=== PATIENT | female | born 1960 | race Two or more races ===

== ENCOUNTER → 2016-05-19 | Outpatient (CLI) | payer BC ==
--- NOTE | 2016-05-19 12:53 | RAD ---
EXAM: CT head without contrast. HISTORY: Headache, dizziness, fall. TECHNIQUE: Computed tomography of the head was performed without intravenous contrast. COMPARISON: None. FINDINGS: There is no intracranial hemorrhage. Elizondo-white differentiation is preserved. The ventricles are normal in size and position. The visualized paranasal sinuses appear clear. The orbits are unremarkable. The temporal bones are unremarkable. The calvarium reveals no suspicious lesions. IMPRESSION: 1. No acute intracranial findings. *One or more of the following individualized dose reduction techniques were utilized for this examination: 1. Automated exposure control. 2. Adjustment of the mA and/or kV according to patient size. 3. Use of iterative reconstruction technique.
--- NOTE | 2016-05-19 12:56 | RAD ---
EXAM: Sacrum/coccyx 3 views. HISTORY: Fall with sacrococcygeal pain. COMPARISON: None. FINDINGS: No fractures are identified. The sacroiliac joints and pubic symphysis are normally aligned. IMPRESSION: 1. No displaced fracture.
--- NOTE | 2016-05-19 12:57 | RAD ---
EXAM: Cervical spine 3 views. HISTORY: Posterior neck pain after a fall. COMPARISON: None. FINDINGS: No fractures are identified. Alignment is normal. There is no prevertebral soft tissue swelling. Intervertebral disc heights are maintained. Atherosclerotic calcifications are noted at both carotid bulbs. IMPRESSION: 1. No fracture or malalignment.
== END | disposition home or self-care (01) ==
LOC: CT 11:49
PROVIDERS: ATTEND Family Medicine
DX: R51 Headache (principal); R42 Dizziness and giddiness; S06.0X9A Concussion with loss of consciousness of unspecified duration, initial encounter; S00.93XA Contusion of unspecified part of head, initial encounter
CPT/HCPCS: 70450; 72040; 72220

== ENCOUNTER → 2016-07-18 | Outpatient (CLI) | payer BC ==
--- NOTE | 2016-07-18 14:10 | RAD ---
Indication chronic bilateral knee pain and swelling. A standing AP view incorporated in both knees was obtained as well as individual oblique and lateral views of each knee. No acute bony finding is seen. Bony mineralization appears normal. Significant degenerative changes are not seen
== END | disposition home or self-care (01) ==
LOC: RAD 13:22
PROVIDERS: ATTEND Family Medicine
DX: M25.561 Pain in right knee (principal); M25.461 Effusion, right knee; G89.29 Other chronic pain
CPT/HCPCS: 73562